=== PATIENT | female | born 1985 | race Caucasian/White ===

== ENCOUNTER 2017-11-09 06:30 | Day surgery (SDC) | payer OTHER ==
[~2017-11-09] VITALS: Ht 157.5 cm; Wt 59.0 kg
[~2017-11-09 06:30] MED LIST: LEVO-T50 MCG PO
== END 2017-11-09 16:15 | disposition home or self-care (01) ==
LOC: CIR.AMB 06:30
DX: N81.6 Rectocele (principal); K64.8 Other hemorrhoids; R15.9 Full incontinence of feces

== ENCOUNTER 2017-11-18 04:16 | Inpatient (IN) | payer OTHER ==
[~2017-11-18] VITALS: Ht 157.5 cm; Wt 59.0 kg
== END 2017-11-22 14:44 | disposition home or self-care (01) | DRG 920 ==
LOC: ER 04:16 → SURH 16:48
PROC: 0DJD8ZZ Inspection of Lower Intestinal Tract, Via Natural or Artificial Opening Endoscopic (ICD-10-PCS; principal; 2017-11-21)
DX: T81.32XA Disruption of internal operation (surgical) wound, not elsewhere classified, initial encounter (principal); K62.5 Hemorrhage of anus and rectum; Y83.8 Other surgical procedures as the cause of abnormal reaction of the patient, or of later complication, without mention of misadventure at the time of the procedure; Y92.098 Other place in other non-institutional residence as the place of occurrence of the external cause; N81.6 Rectocele; R15.2 Fecal urgency

== ENCOUNTER → 2019-02-21 | Day surgery (SDC) | payer OTHER | END | disposition home or self-care (01) | LOC: ADM 02-15 10:30 → CIR.AMB 05:22 | DX: R15.9 Full incontinence of feces (principal) | CPT/HCPCS: 64581; C1778 ==

== ENCOUNTER 2019-03-07 06:38 | Day surgery (SDC) | payer OTHER | END 2019-03-07 12:50 | disposition home or self-care (01) | LOC: CIR.AMB 06:38 | DX: R15.9 Full incontinence of feces (principal) | CPT/HCPCS: 64590; C1767 ==

== ENCOUNTER 2024-08-15 04:51 | Day surgery (SDC) | payer OTHER ==
[2024-08-06 11:51] VITALS: BP 124/77
[~2024-08-15] VITALS: Ht 160 cm; Wt 68.0 kg
[~2024-08-15 04:51] MED LIST changes: +PEPCID20 MG PO; +SYNTHROID88 MCG PO; +TOPROL XL25 M1 PO
[2024-08-15] MEDS ORDERED: LIDOCAINE HCL 1%/EPINEPHRINE 20ML VIAL IJ ONE ×2 (08:15→08:30)
[2024-08-15] MEDS ORDERED: BUPIVACAINE HCL 30 ML VIAL IJ ONE ×2 (08:15→09:00)
[2024-08-15] MEDS ORDERED: HEMOSTATIC MATRIX 1 KIT KIT TOP ONE (08:15)
[2024-08-15] MEDS ORDERED: POVIDONE-IODINE 118 ML BOTT TOP ONE (08:15)
[2024-08-15] MEDS ORDERED: CEFAZOLIN SODIUM 1,000 MG VIAL IV ONE (08:15)
[2024-08-15] MEDS ORDERED: BUPIVACAINE HCL 30 ML VIAL IJ SCH (08:30)
[2024-08-15] MEDS ORDERED: MORPHINE SULFATE 4 MG/ML VIAL IV ONE (09:55)
== END 2024-08-15 12:05 | disposition home or self-care (01) ==
LOC: CIR.AMB 04:51
PROVIDERS: ATTEND Colon & Rectal Surgery
DX: R15.9 Full incontinence of feces (principal); E16.2 Hypoglycemia, unspecified; E03.8 Other specified hypothyroidism
CPT/HCPCS: 64581; 64590; 95972; C1767; C1778